=== PATIENT | female | born 2000 | race Caucasian/White ===

== ENCOUNTER 2021-11-02 18:59 | Emergency (ER) | payer MEDICARE ==
[~2021-11-02] VITALS: Ht 160 cm; Wt 127.0 kg
--- NOTE | 2021-11-02 19:45 | NUR ---
BLOOD AND URINE SENT TO LAB
[2021-11-02] MEDS ORDERED: IV NS 0.9% 1,000 ML BAG IV ONE (20:00)
[2021-11-02 20:23] LABS: BASOPHILS % (AUTO) 0.3 % (0.0-2.0); EOSINOPHILS % (AUTO) 1.8 % (0.0-6.0); HEMATOCRIT 38 % (33-45); HEMOGLOBIN 12.1 g/dL (11.5-14.8); LYMPHOCYTES # (AUTO) 1.3 K/uL (0.8-4.8); MEAN CORPUSCULAR HGB CONC 32 g/dl (31.0-36.0); MEAN CORPUSCULAR VOLUME 86 fL (82-100); MONOCYTES # (AUTO) 0.9 K/uL (0.1-1.30); MONOCYTES % (AUTO) 9.1 % (2.0-12.0); NEUTROPHILS # (AUTO) 7.7 K/uL (1.8-8.9); NEUTROPHILS % (AUTO) 75.8 % (43.0-81.0); PLATELET COUNT (AUTO) 164 K/uL (150-450); RED BLOOD CELL COUNT(AUTO) 4.39 MIL/uL (4.0-5.2); WHITE BLOOD COUNT (AUTO) 10.2 K/uL (4.3-11.0)
[2021-11-02 20:47] LABS: CARBON DIOXIDE 25 mmol/L (21-32); CHLORIDE 102 mmol/L (98-107); CREATININE 0.8 mg/dL (0.6-1.3); GLUCOSE 93 mg/dL (74-106); POTASSIUM 4.4 mmol/L (3.5-5.1); SODIUM SERUM 136 mmol/L (136-145); UREA NITROGEN, BLOOD 11 mg/dL (7-18)
[2021-11-02 20:52] LABS: BILIRUBIN,URINE NEGATIVE (NEGATIVE); COLOR,URINE YELLOW (YELLOW); LEUKOCYTE ESTERASE ,URINE NEGATIVE (NEGATIVE); NITRITE, URINE NEGATIVE (NEGATIVE); PROTEIN,URINE NEGATIVE (NEGATIVE); UGLUCOSE NEGATIVE (NEGATIVE); UROBILINOGEN,URINE 0.2 EU/dL (0.2)
[2021-11-02 20:54] LABS: LIPASE 81 U/L (73-393)
[2021-11-02 20:58] LABS: ALANINE AMINOTRANSFERASE 71 U/L (12-78); ALBUMIN 3.6 g/dL (3.4-5.0); ALKALINE PHOSPHATASE 101 U/L (46-116); ASPARTATE AMINOTRANSFERASE 27 U/L (15-37); BILIRUBIN,DIRECT 0.1 mg/dL (0.0-0.2); BILIRUBIN,TOTAL 0.4 mg/dL (0.2-1.0); TOTAL PROTEIN, SERUM 7.3 g/dL (6.4-8.2)
[2021-11-02] MEDS ORDERED: TRAM50TA2 PO (21:17)
[2021-11-02 21:25] VITALS: BP 142/70
--- NOTE | 2021-11-02 21:25 | NUR ---
Patient discharged to home in stable condition. Written and verbal after care instructions given. Patient verbalizes understanding of instruction.
[2021-11-04] MEDS ORDERED: TRAM50TA2 PO (23:11)
[2021-11-04] MEDS ORDERED: IBUP-1955 PO (23:13)
== END 2021-11-02 21:30 | disposition home or self-care (01) ==
LOC: ER 19:09
DX: R07.89 Other chest pain (principal); Z20.2 Contact with and (suspected) exposure to infections with a predominantly sexual mode of transmission; K21.9 Gastro-esophageal reflux disease without esophagitis; Z79.899 Other long term (current) drug therapy; Z88.8 Allergy status to other drugs, medicaments and biological substances
CPT/HCPCS: 36415; 71045; 80048; 80076; 81003; 83690; 84484; 84702; 85025; 87491; 87591; 93005; 96360; 99285; J7030

== ENCOUNTER → 2021-11-04 | Emergency (ER) | payer MEDICARE ==
[~2021-11-04] VITALS: Ht 160 cm; Wt 127.0 kg
[~2021-11-04] MED LIST: IBUP-1955 PO; TRAM50TA2 PO
[2021-11-04 22:48] VITALS: BP 138/77
--- NOTE | 2021-11-04 23:24 | NUR ---
Patient discharged to home in stable condition. Written and verbal after care instructions given. Patient verbalizes understanding of instruction.
== END | disposition home or self-care (01) ==
LOC: ER 20:48
DX: M94.0 Chondrocostal junction syndrome [Tietze] (principal); K21.9 Gastro-esophageal reflux disease without esophagitis; Z79.1 Long term (current) use of non-steroidal anti-inflammatories (NSAID); Z79.899 Other long term (current) drug therapy; Z88.8 Allergy status to other drugs, medicaments and biological substances

== ENCOUNTER 2022-04-13 19:15 | Emergency (ER) | payer MEDICARE, OTHER ==
[~2022-04-13] VITALS: Ht 160 cm; Wt 136.1 kg
[2022-04-13 20:07] VITALS: BP 155/87
== END 2022-04-13 21:23 | disposition home or self-care (01) ==
LOC: ER 19:31
DX: K08.89 Other specified disorders of teeth and supporting structures (principal); K21.9 Gastro-esophageal reflux disease without esophagitis; Z88.8 Allergy status to other drugs, medicaments and biological substances; Z79.899 Other long term (current) drug therapy

== ENCOUNTER 2022-04-29 21:20 | Emergency (ER) | payer MEDICARE, OTHER ==
[~2022-04-29] VITALS: Ht 160 cm; Wt 136.1 kg
--- NOTE | 2022-04-29 21:31 | NUR ---
BIB 88 FROM APARTMENT C/O TOOK 6 1MG CLONAZEPAM AND 2 5MG HYDROCODONE. AOX4. NO RESP DISTRESS.
--- NOTE | 2022-04-29 22:56 | NUR ---
Patient discharged to home in stable condition. Written and verbal after care instructions given. Patient verbalizes understanding of instruction. pT AOX4.
[2022-04-29 22:57] VITALS: BP 137/71
== END 2022-04-29 23:06 | disposition home or self-care (01) ==
LOC: ER 21:23
DX: T42.4X1A Poisoning by benzodiazepines, accidental (unintentional), initial encounter (principal); T40.2X1A Poisoning by other opioids, accidental (unintentional), initial encounter; I10 Essential (primary) hypertension; K21.9 Gastro-esophageal reflux disease without esophagitis; Z88.8 Allergy status to other drugs, medicaments and biological substances; Y92.89 Other specified places as the place of occurrence of the external cause

== ENCOUNTER 2022-04-30 18:28 | Emergency (ER) | payer MEDICARE, OTHER ==
[~2022-04-30] VITALS: Ht 160 cm; Wt 138.8 kg
--- NOTE | 2022-04-30 19:20 | NUR ---
PACKAGING SPECIALIST AT PT'S BEDSIDE
[2022-04-30 19:50] VITALS: BP 123/70
[2022-04-30 19:51] LABS: BASOPHILS # (AUTO) 0.1 K/uL (0.0-0.2); BASOPHILS % (AUTO) 0.7 % (0.0-2.0); EOSINOPHILS % (AUTO) 3.3 % (0.0-6.0); HEMATOCRIT 40 % (33-45); LYMPHOCYTES # (AUTO) 1.7 K/uL (0.8-4.8); LYMPHOCYTES % (AUTO) 21.2 % (20.0-44.0); MEAN CORPUSCULAR HGB CONC 33 g/dl (31.0-36.0); MEAN CORPUSCULAR VOLUME 84 fL (82-100); MONOCYTES # (AUTO) 0.5 K/uL (0.1-1.30); MONOCYTES % (AUTO) 6.9 % (2.0-12.0); NEUTROPHILS # (AUTO) 5.4 K/uL (1.8-8.9); NEUTROPHILS % (AUTO) 67.9 % (43.0-81.0); PLATELET COUNT (AUTO) 218 K/uL (150-450); RED BLOOD CELL COUNT(AUTO) 4.75 MIL/uL (4.0-5.2)
[2022-04-30 19:52] LABS: CALCIUM, SERUM 9.1 mg/dL (8.5-10.1); CARBON DIOXIDE 25 mmol/L (21-32); CHLORIDE 106 mmol/L (98-107); CREATININE 0.7 mg/dL (0.6-1.3); GLUCOSE 97 mg/dL (74-106); POTASSIUM 3.9 mmol/L (3.5-5.1); SODIUM SERUM 141 mmol/L (136-145); UREA NITROGEN, BLOOD 7 mg/dL (7-18)
[2022-04-30 19:55] LABS: ALANINE AMINOTRANSFERASE 160 U/L (12-78); ALBUMIN 3.8 g/dL (3.4-5.0); ALKALINE PHOSPHATASE 89 U/L (46-116); ASPARTATE AMINOTRANSFERASE 72 U/L (15-37); BILIRUBIN,DIRECT 0.1 mg/dL (0.0-0.2); BILIRUBIN,TOTAL 0.3 mg/dL (0.2-1.0); TOTAL PROTEIN, SERUM 7.6 g/dL (6.4-8.2)
[2022-04-30 19:56] LABS: ACETAMINOPHEN < 2 ug/ml (10-30); ALCOHOL, BLOOD < 3 mg/dL (0-0)
--- NOTE | 2022-04-30 20:03 | NUR ---
URINE COLLECETED AND SENT TO LAB
[2022-04-30 20:19] LABS: BILIRUBIN,URINE NEGATIVE (NEGATIVE); COLOR,URINE YELLOW (YELLOW); LEUKOCYTE ESTERASE ,URINE NEGATIVE (NEGATIVE); NITRITE, URINE NEGATIVE (NEGATIVE); PROTEIN,URINE NEGATIVE (NEGATIVE); UGLUCOSE NEGATIVE (NEGATIVE); UROBILINOGEN,URINE 0.2 EU/dL (0.2)
--- NOTE | 2022-04-30 20:47 | NUR ---
DR. DIGGS SPEAKING TO POISON CONTROL
[2022-04-30] MEDS ORDERED: ACETYLCYSTEINE IV SCH (21:00)
[2022-04-30] MEDS ORDERED: D5W IV SCH (21:00)
--- NOTE | 2022-04-30 21:25 | NUR ---
Patient eloped from facility. ER MD notified.
== END 2022-04-30 22:37 | disposition left against medical advice (07) ==
LOC: ER 18:34
DX: T39.1X1A Poisoning by 4-Aminophenol derivatives, accidental (unintentional), initial encounter (principal); R74.01 Elevation of levels of liver transaminase levels; I10 Essential (primary) hypertension; K21.9 Gastro-esophageal reflux disease without esophagitis; Z88.8 Allergy status to other drugs, medicaments and biological substances; Z79.899 Other long term (current) drug therapy; Y92.89 Other specified places as the place of occurrence of the external cause
CPT/HCPCS: 36415; 80048-TC; 80076-TC; 85025-TC; 87081-TC; G0480

== ENCOUNTER 2022-05-02 11:41 | Inpatient (IN) | payer MEDICARE, OTHER ==
[~2022-05-02] VITALS: Ht 160 cm; Wt 142.9 kg
--- NOTE | 2022-05-02 12:00 | NUR ---
The patient bib39, from home, "took tylenol #3 10 tabs last night". The patient is alert and oriented x3. In room air and denies SOB. Respiration regular and unlabored. The patient is attached to the monitor. Warm blanket provided for comfort. Will continue to monitor the patient.
--- NOTE | 2022-05-02 12:01 | NUR ---
POISON CONTROL [phone] SPOKE WITH DEIRDRE: DO TYL CMP LIVER FUNCTION DO NOT EXPECT TYLENOL IN SYSTEM LOOK FOR ELEVATED LFT IF NEGATIVE THEN 4HOURS OF OBS. IF + TYLENOL LVLS THEN SEE WHEN WAS INGESTED AND CALL US BACK.
--- NOTE | 2022-05-02 12:11 | NUR ---
RECOMMEDED PYCH EVAL. IF + TYL AND/OR LFT THEN TREAT WITH MUCOMYST OR ACETADOTE IV PER LOPEZ @ POISON CONTROL
[2022-05-02 12:49] LABS: BASOPHILS % (AUTO) 0.7 % (0.0-2.0); EOSINOPHILS % (AUTO) 4.6 % (0.0-6.0); HEMATOCRIT 40 % (33-45); HEMOGLOBIN 12.7 g/dL (11.5-14.8); LYMPHOCYTES # (AUTO) 1.6 K/uL (0.8-4.8); LYMPHOCYTES % (AUTO) 29.5 % (20.0-44.0); MEAN CORPUSCULAR HGB CONC 32 g/dl (31.0-36.0); MEAN CORPUSCULAR VOLUME 85 fL (82-100); MONOCYTES # (AUTO) 0.3 K/uL (0.1-1.30); MONOCYTES % (AUTO) 5.9 % (2.0-12.0); NEUTROPHILS # (AUTO) 3.2 K/uL (1.8-8.9); NEUTROPHILS % (AUTO) 59.3 % (43.0-81.0); PLATELET COUNT (AUTO) 191 K/uL (150-450); RED BLOOD CELL COUNT(AUTO) 4.67 MIL/uL (4.0-5.2); WHITE BLOOD COUNT (AUTO) 5.4 K/uL (4.3-11.0)
[2022-05-02 13:09] LABS: ALANINE AMINOTRANSFERASE 374 U/L (12-78); ALBUMIN 3.8 g/dL (3.4-5.0); ALKALINE PHOSPHATASE 117 U/L (46-116); ASPARTATE AMINOTRANSFERASE 209 U/L (15-37); BILIRUBIN,DIRECT 0.1 mg/dL (0.0-0.2); BILIRUBIN,TOTAL 0.3 mg/dL (0.2-1.0); CALCIUM, SERUM 9.3 mg/dL (8.5-10.1); CARBON DIOXIDE 28 mmol/L (21-32); CHLORIDE 105 mmol/L (98-107); CREATININE 0.7 mg/dL (0.6-1.3); GLUCOSE 143 mg/dL (74-106); POTASSIUM 3.8 mmol/L (3.5-5.1); SODIUM SERUM 141 mmol/L (136-145); TOTAL PROTEIN, SERUM 7.6 g/dL (6.4-8.2); UREA NITROGEN, BLOOD 7 mg/dL (7-18)
[2022-05-02 13:12] LABS: BILIRUBIN,URINE NEGATIVE (NEGATIVE); COLOR,URINE YELLOW (YELLOW); LEUKOCYTE ESTERASE ,URINE NEGATIVE (NEGATIVE); NITRITE, URINE NEGATIVE (NEGATIVE); PROTEIN,URINE NEGATIVE (NEGATIVE); UGLUCOSE NEGATIVE (NEGATIVE); UROBILINOGEN,URINE 0.2 EU/dL (0.2)
[2022-05-02 13:20] LABS: ACETAMINOPHEN 0 ug/ml (10-30); ALCOHOL, BLOOD < 3 mg/dL (0-0)
--- NOTE | 2022-05-02 14:16 | NUR ---
covid antigen swab done and sent to the lab
[2022-05-02] MEDS ORDERED: ACETYLCYSTEINE IV SCH ×2 (14:30→19:30)
[2022-05-02] MEDS ORDERED: D5W IV SCH ×2 (14:30→19:30)
--- NOTE | 2022-05-02 14:56 | NUR ---
SS Note: Pt. Is a 21-year-old female who demonstrates adequate insight to the reason for hospitalization. Per EMR, pt. "overdosed" on Tylenol last night. Pt. was oriented x4, alert, and cooperative. During interview, pt. was capable of following directions and appeared groomed. Pt.'s speech was at a normal rate and pt.'s mood was elevated. Pt. reported no hx of mental health, substance abuse, suicidal ideation, or homicidal ideation. Pt. denies auditory hallucinations, visual hallucinations, or paranoia. Pt. stated that she tends to be paranoid thinking someone is after her. CONTRERAS explored pt.'s living situation. Per pt., she lives alone [[id number] [place] [address]]. Pt. stated that her father recently this year, which affects her. Per pt., she took Tylenol to numb herself when she is down. Pt. stated that she started a mental health outpatient program this morning [[facility]]. Pt. has a therapist that she sees weekly [Ewa Pedro] and a psychiatrist that she sees every 3 months. CONTRERAS encouraged pt. to continue seeing them. Plan: CONTRERAS provided available resources and pt. denied. Pt. is getting admitted to the hospital. CONTRERAS notified [facility] toe closing machine tender that pt. should be placed on a 5150 hold.
[2022-05-02] MEDS ORDERED: LORAZEPAM 1 MG TABLET PO ONE (15:00)
[2022-05-02] MEDS ORDERED: LORAZEPAM 1 MG TABLET ONE (15:08)
[2022-05-02] MEDS ORDERED: BUPR-54 PO (15:09)
[2022-05-02] MEDS ORDERED: GABA800T11 PO (15:09)
[2022-05-02] MEDS ORDERED: METO37.5 PO (15:09)
[2022-05-02] MEDS ORDERED: METF-440 PO (15:09)
[2022-05-02] MEDS ORDERED: MIRT7.5T10 PO (15:09)
[2022-05-02] MEDS ORDERED: CLON1TAB12 PO (15:09)
[2022-05-02] MEDS ORDERED: TRAZ150T75 PO (15:09)
[2022-05-02] MEDS ORDERED: CYCL10TA9 PO (15:09)
[2022-05-02] MEDS ORDERED: LURA60TA3 PO (15:09)
[2022-05-02] MEDS ORDERED: LITH600C PO (15:09)
[2022-05-02] MEDS: ACETYLCYSTEINE IV SCH ×2 (15:38→18:52)
[2022-05-02] MEDS: D5W IV SCH ×2 (15:38→18:52)
--- NOTE | 2022-05-02 16:08 | NUR ---
call from Poison controlIvelisse, she is recommending that patient is treated w/ mucomyst: loading [id number]=638 mg x 1 hr infusion 1.56 mg/hr x 20 hrs repeat liver enzyme,pt/INR at the 18th or 19th hr of infusion rancho coronel
[2022-05-02] MEDS ORDERED: ONDANSETRON HCL/PF 4 MG/2 ML VIAL IVP PRN (17:30)
[2022-05-02] MEDS ORDERED: IV NS 0.9% 1,000 ML IV PRN (17:30)
[2022-05-02] MEDS ORDERED: Z GUARD REMEDY 4 OZ OINT TP PRN (17:30)
[2022-05-02] MEDS ORDERED: MAG HYDROX/AL HYDROX/SIMETH 30 ML UDC PO PRN (17:30)
[2022-05-02] MEDS ORDERED: MAGNESIUM HYDROXIDE 30 ML UDC PO PRN (17:30)
[2022-05-02] MEDS ORDERED: [UNRECOGNIZED DRUG - OTHER] IV SCH (19:30)
--- NOTE | 2022-05-03 00:30 | NUR ---
pt sleeping in gurney. no signs of distress noted. pt easily arousable. will cont to monitor pt.
--- NOTE | 2022-05-03 03:39 | NUR ---
REPORT GIVEN TO SELENA COSTA FOR KIKA
[2022-05-03 04:00] VITALS: BP 135/75
--- NOTE | 2022-05-03 05:46 | NUR ---
CLOSING NOTES: ADMITTED AT 0400 FROM THE ER ALERT AND ORIENTATED X4 FLAT AFFECT ANSWERS QUESTIONS NOTED BILATERAL ARM HAVE CUTTING SCARS STATES SHE HAS NO SUICDAL THOUGHT SEEN BY THE CRISIS TEAM IN THE ER TOOK TYN#3 D/T HAS WISDOM TEETH REMOVED AND IT WAS HURTING FELL TO SLEEP AFTER ADMITTING HER SLEEPING SOUNDLY
[2022-05-03 06:28] LABS: BASOPHILS % (AUTO) 0.5 % (0.0-2.0); EOSINOPHILS % (AUTO) 4.7 % (0.0-6.0); HEMATOCRIT 38 % (33-45); HEMOGLOBIN 12.6 g/dL (11.5-14.8); LYMPHOCYTES # (AUTO) 1.4 K/uL (0.8-4.8); LYMPHOCYTES % (AUTO) 26.1 % (20.0-44.0); MEAN CORPUSCULAR HGB CONC 34 g/dl (31.0-36.0); MEAN CORPUSCULAR VOLUME 83 fL (82-100); MONOCYTES # (AUTO) 0.3 K/uL (0.1-1.30); MONOCYTES % (AUTO) 5.9 % (2.0-12.0); NEUTROPHILS # (AUTO) 3.3 K/uL (1.8-8.9); NEUTROPHILS % (AUTO) 62.8 % (43.0-81.0); PLATELET COUNT (AUTO) 174 K/uL (150-450); WHITE BLOOD COUNT (AUTO) 5.3 K/uL (4.3-11.0)
[2022-05-03 06:55] LABS: ALBUMIN 3.3 g/dL (3.4-5.0); BILIRUBIN,DIRECT 0.1 mg/dL (0.0-0.2); BILIRUBIN,TOTAL 0.2 mg/dL (0.2-1.0); CALCIUM, SERUM 8.9 mg/dL (8.5-10.1); CREATININE 0.6 mg/dL (0.6-1.3); PHOSPHORUS 4.3 mg/dL (2.5-4.9); POTASSIUM 3.2 mmol/L (3.5-5.1)
--- NOTE | 2022-05-03 07:30 | NUR ---
MS RN OPENING NOTES: RECEIVED PATIENT LYING COMFORTABLY IN BED, AWAKE, ALERT & ORIENTATION X 4. PATIENT IS SHOWING SOME S/S OF FLAT AFFECT AND ABLE TO ANSWER ALL QUESTIONS. PATIENT IS ROOM AIR, NO S/S SOB & CHEST DISCOMFORT, AND SHE CAN TOLERATE IT WELL. NOTED BILATERAL ARM OF CUTTING SCARS, AND SHE STATED THAT SHE HAS NO SUICIDAL THOUGHT. PATIENT TOOK TYN#3 D/T HAS WISDOM TEETH REMOVED AND IT WAS HURTING. IV ACCESS IN RIGHT AC #20G. SAFETY MEASURES INITIATED. WILL CONTINUE TO MONITOR FOR KIKA.
[2022-05-03] MEDS: POTASSIUM CL. PREMIX PERIPHER. 50 ML IV SCH ×4 (09:57→13:16)
[2022-05-03] MEDS ORDERED: LORAZEPAM 1 MG TABLET PO PRN (10:00)
[2022-05-03] MEDS ORDERED: BUPROPION XL 150 MG TAB.ER.24 PO SCH (10:00)
--- NOTE | 2022-05-03 12:30 | NUR ---
MS RN NOTES SPOKE TO KENDRA @1230 FROM INFECTION CONTROL, AND HE STATED, "PATIENT IS ALREADY MEET THE CRITERIA TO BE CLEARED" BASED ON HER AST & ALT LABS.
--- NOTE | 2022-05-03 17:45 | NUR ---
MS CALENDER WORKER HELPER NOTES PATIENT IS ALERT, AWAKE, & ORIENTATION X 4. PATIENT IS SHOWING SOME S/S OF FLAT AFFECT AND ABLE TO ANSWER ALL QUESTIONS. PATIENT IS ROOM AIR, NO S/S SOB & CHEST DISCOMFORT, AND SHE CAN TOLERATE IT WELL. NOTED BILATERAL ARM OF CUTTING SCARS, AND SHE STATED THAT SHE HAS NO SUICIDAL THOUGHT. PATIENT WAS CLEARED BY THE INFECTION CONTROL AND STABLE TO GO HOME. IV ACCESS IN RIGHT AC #20G IS DISCONTINUED, NO S/S OF INFILTRATION AND INFLAMMATION. DISCHARGE INSTRUCTIONS GIVEN TO PATIENT AND SHE VERBALIZED UNDERSTANDING. PATIENT IS DISCHARGED @ 1745 AND DROPPED TO THE LOBBY.
[2022-05-03] MEDS ORDERED: ACETYLCYSTEINE IV ONE (19:30)
[2022-05-03] MEDS ORDERED: [UNRECOGNIZED DRUG - OTHER] IV ONE (19:30)
[2022-05-03] MEDS ORDERED: D5W IV ONE (19:30)
[2022-05-03] MEDS ORDERED: LITHIUM CARBONATE (300 MG CAP) 300 MG CAPSULE PO SCH (21:00)
[2022-05-03] MEDS ORDERED: QUETIAPINE FUMARATE 100 MG TABLET PO SCH (22:00)
== END 2022-05-03 19:25 | disposition home or self-care (01) | DRG 918 ==
LOC: ER 11:51 → TRANSITION 16:40 → TELE 05-03 02:47 → MED 05-03 03:55
PROVIDERS: ADMIT Internal Medicine; ATTEND Internal Medicine
DX: T39.1X2A Poisoning by 4-Aminophenol derivatives, intentional self-harm, initial encounter (principal); F31.5 Bipolar disorder, current episode depressed, severe, with psychotic features; Q79.60 Ehlers-Danlos syndrome, unspecified; K71.2 Toxic liver disease with acute hepatitis; Y92.009 Unspecified place in unspecified non-institutional (private) residence as the place of occurrence of the external cause; Z20.822 Contact with and (suspected) exposure to COVID-19; E66.01 Morbid (severe) obesity due to excess calories; E87.6 Hypokalemia; F60.3 Borderline personality disorder; I10 Essential (primary) hypertension; I49.8 Other specified cardiac arrhythmias; K21.9 Gastro-esophageal reflux disease without esophagitis; Z88.8 Allergy status to other drugs, medicaments and biological substances
CPT/HCPCS: 36415; 80048-TC; 80076-TC; 83735-TC; 84100-TC; 84703-TC; 85025-TC; 87081-TC; A6403; C9803; G0378; G0480; J0132; J3480; J7030; J7040; J7060; J7070